=== PATIENT | male | born 1960 | race African-American/Black ===

== ENCOUNTER 2018-06-24 17:14 | Emergency (ER) | payer SELFPAY ==
[~2018-06-24] VITALS: Ht 172.7 cm; Wt 87.0 kg
[2018-06-24] MEDS ORDERED: KETOROLAC 60MG/2ML VIAL IM ONE (18:00)
[2018-06-24 18:13] VITALS: BP 152/87
== END 2018-06-24 18:13 | disposition home or self-care (01) ==
LOC: ER 17:14
DX: S16.1XXA Strain of muscle, fascia and tendon at neck level, initial encounter (principal); E11.9 Type 2 diabetes mellitus without complications; I10 Essential (primary) hypertension; V43.52XA Car driver injured in collision with other type car in traffic accident, initial encounter; Y93.89 Activity, other specified; Y92.488 Other paved roadways as the place of occurrence of the external cause
CPT/HCPCS: 96372; 99283; J1885

== ENCOUNTER 2024-12-07 10:27 | Emergency (ER) | payer OTHER, MEDICAID ==
[~2024-12-07] VITALS: Ht 172.7 cm; Wt 77.0 kg
[~2024-12-07 10:27] MED LIST: AMLO10TA80 MT; ATOR20TA PO; GLIP5TAB22 PO; LISI10TA26 PO; METF-1150 PO
[2024-12-07 10:40] VITALS: O2SAT 100
[2024-12-07 13:00] LABS: BASOPHILS % 0.5 % (0.0-2.0); EOSINOPHILS % 1.4 % (0.0-5.0); HEMATOCRIT. 40.3 % (42.0-52.0); HEMOGLOBIN. 13.7 g/dL (14.0-18.0); LYMPHOCYTES % 53.0 % (20.0-50.0); MEAN PLATELET VOLUME 8.8 fl (7.4-10.4); MONOCYTES % 8.7 % (2.0-8.0); NEUTROPHILS % 36.4 % (40.0-76.0); PLATELET 134 x1000/uL (130-400); RED BLOOD CELL COUNT 4.57 mill/uL (4.7-6.1); RED CELL DISTRIBUTION WIDTH 12.9 % (11.6-14.6)
[2024-12-07 13:15] LABS: CREATININE 1.0 mg/dL (0.6-1.3); UREA NITROGEN BLOOD 10 mg/dL (9-23)
[2024-12-07] MEDS: CLONIDINE 0.1MG TABLET PO SCH (13:48)
[2024-12-07 15:14] VITALS: TEMP 37
[2024-12-07] MEDS ORDERED: HYDR25TA MT (15:17)
[2024-12-07 15:25] VITALS: BP 123/74; PULSE 69; RESP 16; O2SAT 99
== END 2024-12-07 15:38 | disposition home or self-care (01) ==
LOC: ER 10:27
DX: I10 Essential (primary) hypertension (principal); R51.9 Headache, unspecified; E11.9 Type 2 diabetes mellitus without complications; E78.00 Pure hypercholesterolemia, unspecified
CPT/HCPCS: 36415; 80048; 85025; 99283